=== PATIENT | female | born 1960 | race Two or more races ===

== ENCOUNTER 2019-07-07 10:18 | Emergency (ER) | payer OTHER ==
[~2019-07-07] VITALS: Ht 157.5 cm; Wt 72.6 kg
[2019-07-07 10:25] VITALS: BP 129/77
--- NOTE | 2019-07-07 10:26 | NUR ---
BIBDAUGHTER, C/O R ARM PAIN WHILE SCRUBBING HER BACK LAST NIGHT, 05/30 PS. ON ROOM AIR, BREATHING EVENLY AND UNLABORED. WILL CONTINUE TO MONITOR ACCORDINGLY.
--- NOTE | 2019-07-07 10:48 | NUR ---
DR GRAY AT BEDSIDE
--- NOTE | 2019-07-07 12:38 | NUR ---
PT SEEN WALKING FROM THE ER, ACCOMPANIED BY DAUGHTER, WITH STEADY GAIT.
--- NOTE | 2019-07-07 12:45 | NUR ---
patient eloped the emergency room MD made aware.
== END 2019-07-07 12:38 | disposition left against medical advice (07) ==
LOC: ER 10:23
DX: M25.531 Pain in right wrist (principal); M25.521 Pain in right elbow; I10 Essential (primary) hypertension; M19.90 Unspecified osteoarthritis, unspecified site
CPT/HCPCS: 73080-TC; 73090-TC; 73110

== ENCOUNTER 2021-03-29 17:49 | Emergency (ER) | payer MEDICAID, OTHER ==
[~2021-03-29] VITALS: Ht 162.6 cm; Wt 78.0 kg
--- NOTE | 2021-03-29 18:30 | NUR ---
FROM HOME, C/O BODYACHES, ABDOMINAL PAIN, +N/V X 3 DAYS. PATIENT A/OX4, BREATHING EVEN AND UNLABORED, NO SOB NOTED, AMBULATORY WITH STEADY GAIT.
[2021-03-29] MEDS ORDERED: ONDANSETRON HCL/PF 4 MG/2 ML VIAL ONE (18:46)
[2021-03-29] MEDS: IV NS 0.9% 1,000 ML BAG IV ONE (19:10)
[2021-03-29] MEDS: ONDANSETRON HCL/PF 4 MG/2 ML VIAL IV ONE (19:10)
--- NOTE | 2021-03-29 19:18 | NUR ---
JEAN CLAUDEID SWABBED, SENT TO LAB.
--- NOTE | 2021-03-29 19:21 | NUR ---
IV LINE ESTABLISHED, BLOOD DRAWN SENT TO LAB.
[2021-03-29 20:08] LABS: ALANINE AMINOTRANSFERASE 36 U/L (12-78); ALBUMIN 3.5 g/dL (3.4-5.0); ALKALINE PHOSPHATASE 48 U/L (46-116); ASPARTATE AMINOTRANSFERASE 29 U/L (15-37); BILIRUBIN,DIRECT 0.1 mg/dL (0.0-0.2); BILIRUBIN,TOTAL 0.3 mg/dL (0.2-1.0); CALCIUM, SERUM 8.7 mg/dL (8.5-10.1); CARBON DIOXIDE 28 mmol/L (21-32); CHLORIDE 103 mmol/L (98-107); CREATININE 1.1 mg/dL (0.6-1.3); GLUCOSE 90 mg/dL (74-106); POTASSIUM 4.6 mmol/L (3.5-5.1); SODIUM SERUM 140 mmol/L (136-145); TOTAL PROTEIN, SERUM 7.8 g/dL (6.4-8.2); UREA NITROGEN, BLOOD 10 mg/dL (7-18)
[2021-03-29 20:23] LABS: BASOPHILS % (AUTO) 0.4 % (0.0-2.0); EOSINOPHILS % (AUTO) 0.1 % (0.0-6.0); HEMATOCRIT 40 % (33-45); HEMOGLOBIN 13.5 g/dL (11.5-14.8); LYMPHOCYTES # (AUTO) 1.6 K/uL (0.8-4.8); LYMPHOCYTES % (AUTO) 35.8 % (20.0-44.0); MEAN CORPUSCULAR HGB CONC 34 g/dl (31.0-36.0); MEAN CORPUSCULAR VOLUME 91 fL (82-100); MONOCYTES # (AUTO) 0.5 K/uL (0.1-1.30); MONOCYTES % (AUTO) 12.1 % (2.0-12.0); NEUTROPHILS # (AUTO) 2.3 K/uL (1.8-8.9); NEUTROPHILS % (AUTO) 51.6 % (43.0-81.0); PLATELET COUNT (AUTO) 153 K/uL (150-450); RED BLOOD CELL COUNT(AUTO) 4.39 MIL/uL (4.0-5.2); WHITE BLOOD COUNT (AUTO) 4.5 K/uL (4.3-11.0)
[2021-03-29] MEDS ORDERED: PROM118S5 PO (20:30)
[2021-03-29] MEDS ORDERED: ACET-2605 PO (20:30)
[2021-03-29] MEDS ORDERED: ONDA4TAB11 PO (20:30)
--- NOTE | 2021-03-29 20:43 | NUR ---
IV removed. Catheter intact and site benign. Pressure and 4x4 applied to site. No bleeding noted. Pt ambulated out of ED. VSS.
[2021-03-29 20:44] VITALS: BP 113/76
--- NOTE | 2021-03-29 20:44 | NUR ---
Patient discharged to home in stable condition. Written and verbal after care instructions given. Patient verbalizes understanding of instruction and RX. Picked up by .
== END 2021-03-29 20:59 | disposition home or self-care (01) ==
LOC: ER 18:01
DX: U07.1 COVID-19 (principal); J12.82 Pneumonia due to coronavirus disease 2019; R11.0 Nausea; R19.7 Diarrhea, unspecified; I10 Essential (primary) hypertension; R94.31 Abnormal electrocardiogram [ECG] [EKG]
CPT/HCPCS: 36415; 71045; 80048; 80076; 83690; 84484; 85025; 87426; 93005; 96361; 96374; 99285; C9803; J2405; J7030